=== PATIENT | male | born 1975 | race Asian ===

== ENCOUNTER → 2023-04-17 06:12 | Day surgery (SDC) | payer BC, SELFPAY | LOC: GI 06:12 | PROVIDERS: ATTENDING PHYSICIAN Internal Medicine | DX: Z12.11 Encounter for screening for malignant neoplasm of colon (principal) | CPT/HCPCS: G0121 ==

== ENCOUNTER 2024-03-29 08:59 | Emergency (ER) | payer BC, SELFPAY ==
[2024-03-29 09:06] VITALS: BP 167/101
[2024-03-29 10:10] LABS: % Basophils 0.2 % (0-2); % Eosinophils 0.2 % (0-6); % Immature Granulocytes 0.3 % (0-0.5); % Lymphocytes 12.8 % (20.5-51.1); % Monocytes 3.4 % (1.7-9.3); % Neutrophils 83.1 % (42.2-75.2); Absolute Lymphocytes 1.6 10^3/uL (1.2-3.4); Absolute Monocytes 0.4 10^3/uL (0.1-0.6); Absolute Neutrophils 10.6 10^3/uL (1.4-6.5); Hematocrit 48.9 % (39.0-52.0); Mean Corp Hgb Conc. 34.8 g/dL (33.0-37.0); Mean Corpuscular Hgb 29.9 pg (27.0-31.0); Mean Corpuscular Volume 86.1 fL (80.0-94.0); Mean Platelet Volume 8.9 fL (7.4-10.4); Nucleated Red Blood Cells % 0 % (-); Platelet Count 393 10^3/uL (130-400); Red Blood Cell Count 5.68 10^6/uL (4.70-6.10); Red Cell Dist. Width 11.3 % (11.5-14.5); White Blood Cell Count 12.8 10^3/uL (4.8-10.8)
[2024-03-29 10:22] LABS: ALT (SGPT) 37 U/L (0-50); AST (SGOT) 35 U/L (17-59); Albumin 4.8 g/dl (3.5-5.0); Alkaline Phosphatase 77 U/L (38-126); Blood Urea Nitrogen 13 mg/dl (9-20); Calcium 9.4 mg/dl (8.4-10.2); Carbon Dioxide 30 mmol/L (22-30); Chloride 98 mmol/L (98-107); Glucose 112 mg/dl (70-99); Lipase 55 U/L (23-300); Potassium 4.6 mmol/L (3.5-5.1); Sodium 137 mmol/L (135-145); Total Bilirubin 0.4 mg/dl (0.2-1.3); eGFR > 60.00
--- NOTE | 2024-03-29 10:32 | ED.GENMED ---
History of Present Illness
General
Chief Complaint: Chest Pain
Time Seen by Provider: 03/29/24 10:20
History of Present Illness
History of Present Illness:
48-year-old otherwise healthy male presents to the emergency department for evaluation of epigastric pain over the past 24 hours. Pain is pleuritic in nature, worse when supine, and worse after eating fatty or sugary foods. No history of abdominal
surgery. Denies NSAID use or alcohol use, denies tobacco use. Does note that he had 'a norovirus like thing' about 2 to 3 weeks ago. No fevers chills or night sweats.
Review of Systems
Review of Systems
Allergies reviewed?: Yes
All Other Systems: ROS reviewed and negative except as documented in HPI and ROS
Phy Exam
Physical Exam
Physical Exam:
GEN: Well appearing, NAD, WDWN
HEENT: Oral mucosa moist, no scleral icterus
Cardiac: Regular rate and rhythm, no murmurs
Lung: No respiratory distress, no tachypnea, lungs clear to auscultation bilaterally
Abdomen: Soft, moderate epigastric tenderness, negative Foster sign
MSK: No gross deformity or injuries
Skin: Good color, no pallor or jaundice, no rashes
Neuro: AO x3, moves all extremities freely
Psych: Calm, cooperative
Scores
Heart Score for Chest Pain Patients
STEMI patient?: No
History: Slightly or Non-Suspicious
ECG: Normal
Age: >45 - <65 years
Risk Factors: No Risk Factors
Troponin: </= Normal Limit
Heart Score for Chest Pain Patients: 1
Heart Score Risk: 2.5% MACE over next 6 weeks
Course
Orders/Labs/Results
Orders:
Orders
03/29/24
Electrocardiogram (*1) Stat
Comment: ALREADY DONE
03/29/24 09:09
EKG [Electrocardiogram (*1)] Urgent
Reason for Study: Chest Pain
03/29/24 09:10
EKG- Treatment ONCE
03/29/24 09:11
IV Insert/Care/Rem.- Treatment PRN
03/29/24 09:57
C-Reactive Protein Urgent
Comment: ADD
Complete Blood Count/With Diff Urgent
Comprehensive Metabolic Panel Urgent
Lipase Urgent
Troponin I Urgent
03/29/24 10:30
HYDROmorphone [Dilaudid] 0.5 mg IV NOW STA
03/29/24 10:31
Add On- LAB Urgent
Tests Added?: crp
Lactated Ringers [Lr] 1,000 ml IV BOLUS
03/29/24 11:13
US Abdomen Complete/Upper Urgent
Comment:
Reason For Exam: epigastric pain
Abnormal Lab Results
03/29/24
09:57
WBC 12.8 H 10^3/uL
(4.8-10.8)
RDW 11.3 L %
(11.5-14.5)
Absolute Neuts (auto) 10.6 H 10^3/uL
(1.4-6.5)
Neutrophils % 83.1 H %
(42.2-75.2)
Lymphocytes % 12.8 L %
(20.5-51.1)
Glucose 112 H mg/dl
(70-99)
03/29/24 09:57
03/29/24 09:57
Vital Signs
Initial and Last Documented VS:
Initial Vital Signs
Temp Pulse Resp BP Pulse Ox
97.2 F 68 16 167/101 100
03/29/24 09:06 03/29/24 09:06 03/29/24 09:06 03/29/24 09:06 03/29/24 09:06
Last Documented Vital Signs
Temp Pulse Resp BP Pulse Ox
97.2 F 62 16 133/92 99
03/29/24 09:06 03/29/24 12:13 03/29/24 12:13 03/29/24 12:13 03/29/24 12:13
MDM/Problems Addressed
MDM/Problems Addressed:
EKG is nonischemic and troponin is reassuring. Lipase is negative. Abdominal ultrasound was obtained after initial round of studies which was also reassuring. His pain pattern is somewhat consistent with pericarditis which would be higher
likelihood after a recent viral illness however his CRP is negative which makes this much less likely. The fact that he had postprandial worsening of symptoms would suggest gastritis/peptic ulcer disease. Will trial PPIs and Carafate, discussed ED
return parameters
*Critical Care Note
Total Time (30-74mins, 75-104mins- exclusive of procedures): Not Applicable
ED Attending Note
-
Portions of this chart may have been created with voice recognition software.� Occasional wrong word or��sound alike� substitutions may have occurred due to the inherent limitations of voice recognition software.
Discharge Plan
Departure
Patient Disposition: Home (Routine Discharge)
Date of Disposition: 03/29/24
Time of Disposition: 12:45
Patient with high blood pressure during this ER visit?: No
Discharge Problem:
Abdominal pain, epigastric
Instructions: Abdominal Pain
Prescriptions:
New
pantoprazole 40 mg tablet,delayed release (DR/EC)
40 mg PO DAILY Qty: 10 0RF
sucralfate [Carafate] 1 gram tablet
1 g PO AC Qty: 30 0RF
Rx Instructions:
Dissolve in 10mL clear liquid prior to consumption
oxycodone 5 mg tablet
5 mg PO Q8H PRN (Reason: Pain) Qty: 10 0RF
Referrals:
Julius Tran MD [Family Provider] -
Activity Restrictions/Additional Instructions:
Return if your symptoms worsen. At this time your testing makes gallbladder disease, pancreatitis, and pericarditis highly unlikely.
Interventions
Interventions:
*Risk Screen - Suicide Last Done: 03/29/24 11:01
*General Assessment Last Done: 03/29/24 11:06
*Neglect/Abuse Screening Last Done: 03/29/24 11:06
ED- Fall Risk Assessment Last Done: 03/29/24 11:01
*ED COVID-19 Vaccine History Last Done: 03/29/24 11:06
*Nursing Disposition Last Done: 03/29/24 13:02
ED- Cardiac Assessment Last Done: 03/29/24 11:01
Discharge Date and Time
Discharge Date/Time: 03/29/24 13:02
Print Language: KINYARWANDA
[2024-03-29 10:34] LABS: Troponin I < 0.012 ng/ml
[2024-03-29 10:45] VITALS: BP 146/92
[2024-03-29] MEDS: DILAUDID 0.5 MG IV (10:48)
[2024-03-29] MEDS: LR 1000 IV (10:48)
[2024-03-29 11:00] LABS: C-Reactive Protein < 5.00 mg/L (0.0-10.00)
[2024-03-29 11:01] VITALS: BMI 20.5
[2024-03-29 11:08] VITALS: BP 141/97
[2024-03-29 12:13] VITALS: BP 133/92
--- NOTE | 2024-03-29 12:42 | EDRN ---
Ashlee Meza PA in to see pt.
== END 2024-03-29 13:02 | disposition home or self-care (01) ==
LOC: EMR 08:59
PROVIDERS: Student in an Organized Health Care Education/Training Program; EMERGENCY PHYSICIAN Emergency Medicine; FAMILY PHYSICIAN Internal Medicine Geriatric Medicine
DX: R10.13 Epigastric pain (principal)
CPT/HCPCS: 99284; 96374; 96361; 76700; 80053; 83690; 84484; 85025; 86140; 93005